=== PATIENT | female | born 1945 | race Caucasian/White ===

== ENCOUNTER → 2022-04-09 | Outpatient (CLI) | payer MEDICARE, OTHER ==
[~2022-04-09] MED LIST: ALLEGRA-D 24 H1 EACH PO; CALCIUM500 MG PO; CYTOTEC200 MCG PO; DICLOFENAC SODI75 MG PO; DITROPAN XL5 MG PO; ENDOCET 5-3251 EACH PO; LASIX20 MG PO; MAGNESIUM250 M1 PO; NEURONTIN 300300 MG PO; NORTRIPTYLINE H25 MG PO; PERCOCET 10-321 EACH PO; POTASSIUM99 MG PO; PROTONIX40 MG PO; VITAMIN B12 PO; VITAMIN D31000 UNIT PO; ZINC50 M2 PO; [UNRECOGNIZED DRUG - OTHER] PO
== END ==
LOC: HEART 5 09:21
DX: J45.909 Unspecified asthma, uncomplicated (principal); R06.02 Shortness of breath
CPT/HCPCS: 94010; 95012